=== PATIENT | female | born 1970 | race Two or more races ===

== ENCOUNTER 2018-12-08 12:41 | Emergency (ER) | payer OTHER ==
[~2018-12-08] VITALS: Ht 147.3 cm; Wt 55.4 kg
[2018-12-08 14:42] LABS: BASOPHILS % 0.7 % (0.0-2.0); EOSINOPHILS % 0.4 % (0.0-5.0); HEMOGLOBIN. 13.8 g/dL (12.0-16.0); LYMPHOCYTES % 21.4 % (20.0-50.0); MEAN CORPUSCULAR HEMOGLOBIN 33.5 pg (28.0-32.0); MEAN CORPUSCULAR VOLUME 94.9 fL (81.0-99.0); MEAN PLATELET VOLUME 8.3 fl (7.4-10.4); MONOCYTES % 7.8 % (2.0-8.0); NEUTROPHILS % 69.7 % (40.0-76.0); PLATELET 184 x1000/uL (130-400); RED BLOOD CELL COUNT 4.11 mill/uL (4.2-5.4); RED CELL DISTRIBUTION WIDTH 13.6 % (11.6-14.6)
[2018-12-08 14:45] LABS: CHLORIDE 112 mEq/L (98-107)
[2018-12-08] MEDS: ONDANSETRON 4MG ODT PO STA (14:51)
[2018-12-08 15:44] LABS: CLARITY URINE CLEAR (CLEAR); COLOR URINE YELLOW (YELLOW); KETONES URINE NEGATIVE (NEGATIVE); LEUKOCYTE ESTERASE URINE NEGATIVE (NEGATIVE); NITRITE URINE NEGATIVE (NEGATIVE); OCCULT BLOOD URINE TRACE (NEGATIVE); PH URINE 7.5 (4.5-8.0); PROTEIN URINE NEGATIVE (NEGATIVE); SPECIFIC GRAVITY URINE 1.019 (1.005-1.030)
[2018-12-08 15:58] LABS: HCG SCREEN NEGATIVE
[2018-12-08 16:49] VITALS: BP 136/79
== END 2018-12-08 16:49 | disposition home or self-care (01) ==
LOC: ER 12:50
DX: I10 Essential (primary) hypertension (principal); R42 Dizziness and giddiness; Z98.890 Other specified postprocedural states
CPT/HCPCS: 36415; 80053; 81003; 84703; 85025; 93005; 99284; Q0162

== ENCOUNTER 2019-08-04 00:22 | Emergency (ER) | payer OTHER ==
[~2019-08-04] VITALS: Ht 147.3 cm; Wt 57.0 kg
[2019-08-04] MEDS ORDERED: ONDANSETRON 4MG ODT PO ONE (01:00)
[2019-08-04] MEDS ORDERED: ACETAMINOPHEN 325MG TABLET PO ONE (01:00)
[2019-08-04] MEDS ORDERED: FAMOTIDINE 20MG TABLET PO ONE (01:00)
[2019-08-04] MEDS ORDERED: MAGNESIUM/ALUMINUM HYDROXIDE/SIMETHICONE 30ML UDC PO ONE (01:00)
[2019-08-04 01:04] LABS: BASOPHILS % 1.2 % (0.0-2.0); EOSINOPHILS % 12.2 % (0.0-5.0); HEMATOCRIT. 39.7 % (36.0-48.0); HEMOGLOBIN. 13.5 g/dL (12.0-16.0); LYMPHOCYTES % 32.7 % (20.0-50.0); MEAN CORPUSCULAR VOLUME 94.2 fL (81.0-99.0); MEAN PLATELET VOLUME 8.3 fl (7.4-10.4); MONOCYTES % 9.3 % (2.0-8.0); NEUTROPHILS % 44.6 % (40.0-76.0); PLATELET 175 x1000/uL (130-400); RED BLOOD CELL COUNT 4.21 mill/uL (4.2-5.4); RED CELL DISTRIBUTION WIDTH 14.1 % (11.6-14.6)
[2019-08-04 01:10] LABS: CHLORIDE 109 mEq/L (98-107)
[2019-08-04 01:44] LABS: HCG SCREEN NEGATIVE
[2019-08-04 03:22] VITALS: BP 119/84
== END 2019-08-04 04:54 | disposition home or self-care (01) ==
LOC: ER 00:22
DX: R10.13 Epigastric pain (principal); R11.10 Vomiting, unspecified; Z98.890 Other specified postprocedural states
CPT/HCPCS: 36415; 80053; 83690; 84703; 85025; 99284; Q0162